=== PATIENT | male | born 2000 | race Caucasian/White ===

== ENCOUNTER 2022-04-21 08:25 | Outpatient (CLI) | payer OTHER, SELFPAY ==
[2022-04-21 13:10] LABS: Cholesterol* 149 mg/dL (90-199); Glucose* 97 mg/dL (60-115); Triglycerides* 56 mg/dL (40-149)
[2022-04-21 13:11] LABS: HDL Cholesterol* 61 mg/dL (>=40); LDL Cholesterol Calculated 77 mg/dL (<100)
== END 2022-04-21 08:26 | disposition home or self-care (01) ==
PROVIDERS: PCP Family Medicine; Visit Provider Family Medicine
DX: Z00.00 Encounter for general adult medical examination without abnormal findings (principal); Z13.1 Encounter for screening for diabetes mellitus; Z13.6 Encounter for screening for cardiovascular disorders
CPT/HCPCS: 80061; 82947

== ENCOUNTER 2023-09-09 14:00 | Outpatient (RCR) | payer OTHER, SELFPAY ==
--- NOTE | 2023-07-27 17:33 | OT.OPOE ---
OT Outpatient Ortho Eval OT Outpatient Ortho Eval* Start: 07/27/23 08:32 Freq: Status: Active Protocol: Document 07/27/23 08:33 EMETERIO (Rec: 07/27/23 17:27 EMETERIO [id number]) E-signed By Shiela Quiros, OTR/L, CLT OT OP Ortho Eval Details Complexity Complexity Low Insurance Information Insurance Information [facility] History/Precautions Current Condition/Medical Diagnosis Referring Provider Dr. Major Farr Treatment Diagnosis Pain in L elbow, M25.522 Date of Onset Chronic, DOI: 2 years ago Other Conditions Night terrors (Acute) F51.4 - Sleep terrors [night terrors] (ICD-10) Epistaxis (Acute)-Nosebleeds R04.0 - Epistaxis (ICD-10) Medical/Functional History Medical History Reviewed Yes Social History Employment Status [employer] Rep[employer]r Employed Current Occupation Fully Remote job (sales, on the computer) Hobbies Rock climbing, fitness, surfing Fitness Very active Oriented Mental Status No Concerns Ortho Subjective Subjective Subjective Patient reports that his pain began 2 years ago when he was in college doing frequent surfing, no other acute trauma /injury. Referral for this Eval gave them PCP, patient has not had imaging of his elbow and has not been treated for his elbow (no formal therapy). Patient states that he has tried googling his symptoms and despite ice packs , eccentric strengthening program and stretching he hasn 't had any improvement on his own and decided it was time to be seen. Pain Assessment Pain Present Pain Present Pain Reported Location Left Elbow Description Tightness,Pressure,Dull, Achy, Throbbing Intensity 5 Range of Motion and Strength Shoulder Range of Motion and Strength Shoulder Range of Motion and Strength Bilateral AROM is FULL, but L shoulder has upper trap activation and R shoulder doesn't Going to recommending a shoulder program for patient to recruit the lower trap muscle and serratus anterior. MMT is 5/5 bilateral Elbow/Forearm Range of Motion and Strength Elbow/Forearm Range of Motion and Bilateral AROM is FULL, MMT is Strength 5/5 bilateral Wrist Range of Motion and Strength Wrist Range of Motion and Strength Bilateral AROM is FULL, MMT is 5/5 bilateral Hand/Finger/Thumb Range of Motion and Strength Hand/Finger/Thumb Range of Motion and Patient able to make a full Strength composite fist with both hands , AROM is FULL bilateral strength is >Norms for Age/ Gender *see garment manufacturing supervisor/pinches in grid During tendon glides, patient did report tightness will recommend tendon glides as part of his HEP Hand Pinch/Ergonomics Technician Strength Hand Right Ergonomics Technician Strength Position 1 (lbs) 140 Ergonomics Technician Strength Position 2 (lbs) 130 Lateral Pinch Strength (lbs) 29 Three Point Pinch (lbs) 27 Left Ergonomics Technician Strength Position 1 (lbs) 118 Ergonomics Technician Strength Position 2 (lbs) 118 Lateral Pinch Strength (lbs) 27 Three Point Pinch (lbs) 25 OT Problems Problems Problems Pain,Lifting,Gripping Patient Potential Good Assessment Assessment Assessment Patient is a R hand dominant 22-year-old healthy male expressing chronic pain on the medial side of the L elbow. Patient reports that his pain began 2 years ago when he was in college doing frequent surfing, no other acute trauma /injury. Referral for this Eval gave them PCP, patient has not had imaging of his elbow and has not been treated for his elbow (no formal therapy). Patient states that he has tried googling his symptoms and despite ice packs , eccentric strengthening program and stretching he hasn 't had any improvement on his own and decided it was time to be seen. Patient is an excellent candidate for therapy, he was pleasant, alert, orientated, asked great questions in session, was an active listener to information presented to him and showed signs of motivation/ willingness to follow the presented protocol in POC. PLAN: medial epicondylitis protocol, use of Ultrasound, Ionto, Manual treatment ( [facility]), development of a home exercise program that progresses as patient is able and pain symptoms decrease as well as patient education on biomechanics/ergonometric/ activity modifications to decrease flare-ups. Barriers to treatment plan include but are not limited to: Chronic condition, started 2 years ago -no imagining to know exact damage/dx Occupational Therapy Treatment Plan - OP Potential Rehabilitation Potential Excellent Barriers Barriers to goal attainment Chronic condition, started 2 years ago-no imagining to know exact damage/dx Set Goals Goals Set with Patient Yes Goals Goals 1. Patient will verbalize 3 activity modifications to decrease abusive/overloading of the tendons. 2. Pt will demonstrate pain- free garment manufacturing supervisor and pinch strength comparable to the uninvolved side in order to improve functional grasp, hold, reach, and lifting ability needed to complete self-care, leisure tasks, and work activities. 3. Through activity participation in skilled therapy sessions, and consistency in performing a customized HEP, patient will improve capacity of tendons and muscles to manage load in order to have less pain with ADLs, work, leisure activities and IADLs. Target Date 8 weeks Treatment Plan Treatment Plan Evaluation,Edema Control, Iontophoresis,Joint Mobilization,Manual Therapy, Ultrasound,Therapeutic Exercise,Self Care/Home Management,Education Expected Frequency 1-2x Week Expected Duration 8-10 Weeks Home Program Home Program Home Program Initiated Home Program Specifics Access Code: [email or web address] URL: [email or web address]/ Date: 07/27/2023 Prepared by: Shiela Quiros Exercises - Seated Isometric Elbow Extension - 1 x daily - 7 x weekly - 2 sets - 10 reps - Isometric Tricep Extension - 1 x daily - 7 x weekly - 2 sets - 10 reps - Shoulder External Rotation and Scapular Retraction with Resistance - 1 x daily - 7 x weekly - 2 sets - 10 reps - Shoulder extension with resistance - Neutral - 1 x daily - 7 x weekly - 2 sets - 10 reps - Scapular Retraction with Resistance - 1 x daily - 7 x weekly - 2 sets - 10 reps - Wall Hepler - 1 x daily - 7 x weekly - 2 sets - 10 reps - Standing Wall Ball Circles with Mini [place] Ball - 1 x daily - 7 x weekly - 2 sets - 10 reps - Isometric Wrist Extension Pronated - 1 x daily - 7 x weekly - 2 sets - 10 reps - 5- 10 hold - Seated Isometric Wrist Flexion Supinated with Manual Resistance - 1 x daily - 7 x weekly - 2 sets - 10 reps - 5- 10 hold - Seated Isometric Wrist Radial Deviation with Manual Resistance - 1 x daily - 7 x weekly - 2 sets - 10 reps - 5- 10 hold - Seated Isometric Wrist Ulnar Deviation with Manual Resistance - 1 x daily - 7 x weekly - 2 sets - 10 reps - 5- 10 hold - Doorway Pec Stretch at 60 Elevation - 1 x daily - 7 x weekly - 2 sets - 10 reps - 20 -30 hold - Prone Single Arm Shoulder Y - 1 x daily - 7 x weekly - 2 sets - 10 reps - 5 hold - Prone Shoulder Extension - Single Arm - 1 x daily - 7 x weekly - 2 sets - 10 reps - 5 hold - Prone Single Arm Shoulder Horizontal Abduction with Dumbbell - Palm Down - 1 x daily - 7 x weekly - 2 sets - 10 reps - 5 hold Recertification Information Recertification Information Initial Certification Date 07/27/23 Recertification Due Date 10/25/23 Click To Default 'Per treatment plan' Per treatment plan Continued Plan of Care and Interventions Per treatment plan Provider Signature Shows Agreement With POC & Medical Necessity Physician Comment/Change Comment or Changes Physician NPI Number #
== END 2023-09-09 16:04 | disposition home or self-care (01) ==
PROVIDERS: PCP Family Medicine; Visit Provider Family Medicine
DX: M25.522 Pain in left elbow (principal); Z51.89 Encounter for other specified aftercare
CPT/HCPCS: 97035; 97110; 97140; 97165; X5282